=== PATIENT | female | born 1955 | race Caucasian/White ===

== ENCOUNTER → 2023-08-05 | Outpatient (CLI) | payer MEDICARE | END | disposition home or self-care (01) | LOC: RESCLI 13:16 | PROVIDERS: ATTEND Internal Medicine | DX: D68.51 Activated protein C resistance (principal); G43.909 Migraine, unspecified, not intractable, without status migrainosus; N95.2 Postmenopausal atrophic vaginitis; G62.9 Polyneuropathy, unspecified; Z79.899 Other long term (current) drug therapy; Z88.8 Allergy status to other drugs, medicaments and biological substances; Z98.890 Other specified postprocedural states ==